=== PATIENT | female | born 1990 | race African-American/Black ===

== ENCOUNTER 2022-08-22 08:43 | Emergency (ER) | payer SELFPAY ==
[~2022-08-22] VITALS: Ht 162.6 cm; Wt 78.0 kg
[2022-08-22] MEDS ORDERED: LIDOCAINE HCL/PF 1% 10 MG/ML 5ML VIAL INFIL ONE (10:45)
[2022-08-22] MEDS ORDERED: LIDOCAINE HCL/EPINEPHRINE 1%-EPI 1:100,000 10 ML VIAL IJ NR (10:45)
[2022-08-22] MEDS ORDERED: LIDOCAINE HCL/EPINEPHRINE 1%-EPI 1:100,000 20 ML VIAL INFIL ONE (10:45)
[2022-08-22] MEDS ORDERED: IBUPROFEN 600MG TABLET PO ONE (10:45)
[2022-08-22] MEDS ORDERED: T3 PO (11:02)
[2022-08-22] MEDS ORDERED: CEPH500C2 MT (11:02)
[2022-08-22] MEDS ORDERED: IBUP-2029 MT (11:02)
[2022-08-22 11:06] VITALS: BP 128/78
== END 2022-08-22 11:31 | disposition home or self-care (01) ==
LOC: ER 08:43
DX: L05.01 Pilonidal cyst with abscess (principal)
CPT/HCPCS: 10060; 99283; J3490; Z7610

== ENCOUNTER 2022-08-25 06:57 | Inpatient (IN) | payer MEDICAID, OTHER ==
[~2022-08-25] VITALS: Ht 162.6 cm; Wt 76.3 kg
[~2022-08-25 06:57] MED LIST: CEPH500C2 MT; IBUP-2029 MT; T3 PO
[2022-08-25] MEDS ORDERED: SODIUM CHLORIDE 0.9% 1,000 ML IV ONE (09:00)
[2022-08-25] MEDS ORDERED: PIPERACILLIN/TAZOBACTAM 3.375GM/50ML PREMIX IV NR (09:00)
[2022-08-25] MEDS ORDERED: VANCOMYCIN 1G PREMIX 200 ML IV SCH (09:00)
[2022-08-25 09:25] LABS: BASOPHILS % 0.5 % (0.0-2.0); EOSINOPHILS % 0.2 % (0.0-5.0); HEMOGLOBIN. 11.6 g/dL (12.0-16.0); MEAN CORPUSCULAR HEMOGLOBIN 26.2 pg (28.0-32.0); MEAN CORPUSCULAR VOLUME 79.2 fL (81.0-99.0); MEAN PLATELET VOLUME 7.7 fl (7.4-10.4); MONOCYTES % 10.9 % (2.0-8.0); NEUTROPHILS % 74.4 % (40.0-76.0); PLATELET 424 x1000/uL (130-400); RED BLOOD CELL COUNT 4.41 mill/uL (4.2-5.4); RED CELL DISTRIBUTION WIDTH 12.3 % (11.6-14.6)
[2022-08-25 09:32] LABS: CLARITY URINE CLEAR (CLEAR); COLOR URINE YELLOW (YELLOW); KETONES URINE NEGATIVE (NEGATIVE); LEUKOCYTE ESTERASE URINE TRACE (NEGATIVE); NITRITE URINE NEGATIVE (NEGATIVE); OCCULT BLOOD URINE NEGATIVE (NEGATIVE); PH URINE 6.5 (4.5-8.0); PROTEIN URINE TRACE (NEGATIVE); SPECIFIC GRAVITY URINE 1.014 (1.005-1.030)
[2022-08-25 09:32] LABS: CHLORIDE 102 mEq/L (98-107)
[2022-08-25 09:35] LABS: INR 1.1; PROTHROMBIN TIME 11.3 sec (9.6-11.0)
[2022-08-25] MEDS ORDERED: SODIUM CHLORIDE 0.9% 1000ML BAG (SEPSIS BOLUS) IV ONE (10:00)
[2022-08-25] MEDS ORDERED: SODIUM CHLORIDE 0.9% 2,310 ML IV SCH (10:00)
[2022-08-25] MEDS ORDERED: VANCOMYCIN 1G PREMIX 200 ML IV NR (10:15)
[2022-08-25] MEDS ORDERED: IOHEXOL-300 100 ML BOTTLE ONE (13:35)
[2022-08-25] MEDS ORDERED: NA PHOS,M-B/NA PHOS,DI-BA ENEMA 118ML PR PRN (14:15)
[2022-08-25] MEDS ORDERED: ONDANSETRON HCL 4MG/2ML INJ IV PRN (14:15)
[2022-08-25] MEDS ORDERED: IPRATROPIUM/ALBUTEROL 0.5-3(2.5)MG/3ML NEB HHN PRN (14:15)
[2022-08-25] MEDS ORDERED: MAGNESIUM/ALUMINUM HYDROXIDE/SIMETHICONE 30ML UDC PO PRN (14:15)
[2022-08-25] MEDS ORDERED: ACETAMINOPHEN 325MG TABLET PO PRN (14:15)
[2022-08-25] MEDS ORDERED: DOCUSATE SODIUM 100MG CAPSULE PO PRN (14:15)
[2022-08-25] MEDS ORDERED: CLONIDINE 0.1MG TABLET PO PRN (14:15)
[2022-08-25] MEDS ORDERED: HYDROCODONE/ACETAMINOPHEN 5/325MG TABLET PO PRN (14:15)
[2022-08-25] MEDS ORDERED: ACETAMINOPHEN 325MG TABLET PO NR (14:30)
[2022-08-25] MEDS ORDERED: NALOXONE HCL 0.4MG/ML VIAL IV PRN (14:30)
[2022-08-25] MEDS ORDERED: PIPERACILLIN/TAZ 3.375G PREMIX 50 ML IV SCH (14:30)
[2022-08-25] MEDS: SODIUM CHLORIDE 0.9% 1,000 ML IV SCH (14:42)
[2022-08-25] MEDS: ENOXAPARIN 40MG/0.4ML SYR SUBCUT SCH (15:05)
[2022-08-25 15:57] LABS: T4 FREE 1.12 ng/dL (0.76-1.46)
[2022-08-25 21:15] VITALS: BP 105/63
[2022-08-25] MEDS: FAMOTIDINE 20MG TABLET PO SCH (22:28)
[2022-08-25] MEDS: VANCOMYCIN 1G PREMIX 200 ML IV SCH (22:43)
[2022-08-26] MEDS ORDERED: PIPERACILLIN/TAZ 3.375G PREMIX 50 ML IV SCH (00:30)
[2022-08-26 00:51] VITALS: BP 136/71
[2022-08-26 04:00] VITALS: BP 133/81
[2022-08-26] MEDS: SODIUM CHLORIDE 0.9% 1,000 ML IV SCH ×2 (05:40→18:41)
[2022-08-26] MEDS ORDERED: PIPERACILLIN/TAZOBACTAM 3.375 G in DEXTROSE 5% WATER 50 ML IV SCH (06:00)
[2022-08-26 06:52] LABS: BASOPHILS % 0.5 % (0.0-2.0); EOSINOPHILS % 0.2 % (0.0-5.0); HEMATOCRIT. 30.8 % (36.0-48.0); HEMOGLOBIN. 10.6 g/dL (12.0-16.0); LYMPHOCYTES % 11.6 % (20.0-50.0); MEAN CORPUSCULAR VOLUME 78.7 fL (81.0-99.0); MEAN PLATELET VOLUME 7.8 fl (7.4-10.4); MONOCYTES % 12.5 % (2.0-8.0); NEUTROPHILS % 75.2 % (40.0-76.0); PLATELET 347 x1000/uL (130-400); RED BLOOD CELL COUNT 3.91 mill/uL (4.2-5.4); RED CELL DISTRIBUTION WIDTH 12.2 % (11.6-14.6)
[2022-08-26 08:00] VITALS: BP 98/58
[2022-08-26 08:02] LABS: CHLORIDE 104 mEq/L (98-107)
[2022-08-26] MEDS: VANCOMYCIN 1G PREMIX 200 ML IV SCH ×2 (09:22→20:39)
[2022-08-26 12:00] VITALS: BP 124/52
[2022-08-26] MEDS ORDERED: LIDOCAINE 2%/EPINEPHRINE 1:200,000 20 ML VIAL INJ NR (12:00)
[2022-08-26] MEDS ORDERED: LIDOCAINE HCL 4% CREAM 76GM TUBE TP NR (12:00)
[2022-08-26] MEDS: ENOXAPARIN 40MG/0.4ML SYR SUBCUT SCH (14:51)
[2022-08-26 16:00] VITALS: BP 96/61
[2022-08-26] MEDS: PIPERACILLIN/TAZOBACTAM 3.375 G in DEXTROSE 5% WATER 50 ML IV SCH ×2 (16:13→20:38)
[2022-08-26] MEDS: ACETAMINOPHEN 325MG TABLET PO PRN (17:48)
[2022-08-26 20:00] VITALS: BP 114/72
[2022-08-26] MEDS: FAMOTIDINE 20MG TABLET PO SCH (20:38)
[2022-08-27] MEDS: ACETAMINOPHEN 325MG TABLET PO PRN (01:34)
[2022-08-27 04:00] VITALS: BP 107/59
[2022-08-27] MEDS: PIPERACILLIN/TAZOBACTAM 3.375 G in DEXTROSE 5% WATER 50 ML IV SCH ×2 (05:38→14:41)
[2022-08-27 06:19] LABS: HEMOGLOBIN 9.6 g/dL (12.0-16.0); MEAN CORPUSCULAR HEMOGLOBIN 26.2 pg (28.0-32.0); MEAN CORPUSCULAR VOLUME 78.8 fL (81.0-99.0); PLATELET 348 x1000/uL (130-400); RED BLOOD CELL COUNT 3.68 mill/uL (4.2-5.4)
[2022-08-27 06:25] LABS: CHLORIDE 102 mEq/L (98-107)
[2022-08-27 08:00] VITALS: BP 102/59
[2022-08-27] MEDS: VANCOMYCIN 1G PREMIX 200 ML IV SCH (09:01)
[2022-08-27] MEDS: SODIUM CHLORIDE 0.9% 1,000 ML IV SCH (09:24)
[2022-08-27 12:00] VITALS: BP 115/65
[2022-08-27] MEDS: ENOXAPARIN 40MG/0.4ML SYR SUBCUT SCH (14:41)
[2022-08-27 16:14] VITALS: BP 115/65
== END 2022-08-27 17:00 | disposition home or self-care (01) | DRG 720 ==
LOC: ER 06:57 → EDBEDREQ 10:00 → 7WST 14:28 → EDBEDREQTM 14:38 → EDBEDREQ 14:38 → ENRESERV 20:08
PROVIDERS: ADMIT Internal Medicine; ATTEND Internal Medicine
DX: A41.9 Sepsis, unspecified organism (principal); M46.28 Osteomyelitis of vertebra, sacral and sacrococcygeal region; D50.9 Iron deficiency anemia, unspecified; D75.838 Other thrombocytosis; L05.01 Pilonidal cyst with abscess; N39.0 Urinary tract infection, site not specified; R59.0 Localized enlarged lymph nodes
CPT/HCPCS: 36415; 71045; 72193; 80048; 80053; 80061; 80202; 81003; 83540; 83550; 83605; 84145; 84439; 84443; 85025; 85027; 87070; 87076; 93005; 99285; C1893; J1650; J2543; J3370; J3490; J7030; J7060; Q9967

== ENCOUNTER 2023-09-06 03:07 | Emergency (ER) | payer MEDICAID, OTHER ==
[~2023-09-06] VITALS: Ht 160 cm; Wt 72.1 kg
[~2023-09-06 03:07] MED LIST changes: -CEPH500C2 MT; -T3 PO
[2023-09-06 03:39] VITALS: BP 129/89; PULSE 89; RESP 16; TEMP 98.6; O2SAT 99
[2023-09-06] MEDS ORDERED: P20 MT (07:04)
[2023-09-06] MEDS ORDERED: AZIT250T12 MT (07:04)
== END 2023-09-06 08:00 | disposition home or self-care (01) ==
LOC: ER 03:07
DX: R05.9 Cough, unspecified (principal); N93.8 Other specified abnormal uterine and vaginal bleeding
CPT/HCPCS: 99283